=== PATIENT | female | born 1965 | race Caucasian/White ===

== ENCOUNTER 2016-04-07 11:54 | Outpatient (CLI) | payer MEDICARE ==
[~2016-04-07] VITALS: Ht 154.9 cm; Wt 60.9 kg
[~2016-04-07 11:54] MED LIST: ALEVE220 MG PO; CATAPRES0.1 MG PO; CELEXA10 MG PO; HYDROCODON-ACE1 EAC6 PO; HYDROCODONE-APA1 TAB PO; LISINOPRIL-HCTZ1 T11 PO; MOBIC7.5 MG PO; NEURONTIN 300300 MG PO; NORVASC10 MG PO; NORVASC5 MG PO; PRILOSEC20 MG PO; PROAIR HFA8.5 GM INH; SPIRIVA18 MCG INH; SYMBICORT 16010.2 GM INH; TOPROL XL50 MG PO; ULTRAM50 MG PO; ZOFRAN4 MG PO
[2016-04-07 13:28] VITALS: BP 109/64; Ht 154.9 cm; Wt 60.9 kg
--- NOTE | 2016-04-07 14:18 | NUR ---
1315 PATIENT INFORMED THAT PER BLOOD BANK THAT HER COLD AGGLUTINS WERE ELEVATED AND SHE NEEDED TO STAY WARM DURING BLOOD TRANSFUSION AND WHEN SHE GOES HOME. NO NEED FOR BLOOD WARMER. GAVE PT WARM BLANKET AND RAISED ROOM TEMP.
--- NOTE | 2016-04-07 14:28 | NUR ---
1405 BLOOD INFUSING AND NO S/S OF ADVERSE EFFECTS FROM BLOOD. TEMP OKAY, ROOM WARM AND NO RESPIRATORY DISTRESS NOTED.IV IN LEFT ARM NO REDNESS OR SWELLING TO IV SITE.
--- NOTE | 2016-04-07 14:30 | NUR ---
1420 DOZING WITH EYES CLOSED AND NO S/S OF ADVERSE BLOOD REACTIONS NOTED.
--- NOTE | 2016-04-07 15:02 | NUR ---
1455 BLOOD INFUSING WITHOUT S/S OF BLOOD REACTIONS NOTED. NO NEEDS VOICED V/S STABLE. IV TO LEFT ARM NO REDNESS OR SWELLING.
--- NOTE | 2016-04-07 15:25 | NUR ---
8116 SHELLY MITCHELL R.N. CALLED [facility] OFFICE ONLY GETTING 1 UNIT OF BLOOD NOT 2 AND NO NEED FOR LASIX ONLY GETTING 1 UNIT.
--- NOTE | 2016-04-07 15:26 | NUR ---
1520 V/S STABLE DOZING AND BLOOD INFUSING WITHOUT S/S OF BLOOD REACTIONS NOTED. IV SITE LEFT ARM NO REDNESS OR SWELLING.
--- NOTE | 2016-04-07 16:10 | NUR ---
1550 BLOOD COMPLETED AND FLUSHING WITH NORMAL SALINE.IV LEFT ARM NO REDNESS OR SWELLING.
--- NOTE | 2016-04-07 18:15 | NUR ---
1750 V/S TAKEN NO S/S OF BLOOD REACTIONS. IV DCD CATHETER INTACT. DISCHARGE INSTRUCTIONS GIVEN AND REVIEWED BLOOD TRANSFUSION REACTION SHEET. VERBALLY UNDERSTANDS.
--- NOTE | 2016-04-07 18:18 | NUR ---
1800 TO HOME WALKED TO FRONT AMBULATED.
== END 2016-04-07 18:00 | disposition home or self-care (01) ==
LOC: D.OPS 11:54 → D.MAMMO 13:15 → D.OPS 13:15
DX: Z12.31 Encounter for screening mammogram for malignant neoplasm of breast (principal); D64.81 Anemia due to antineoplastic chemotherapy

== ENCOUNTER 2016-08-01 10:06 | Inpatient (IN) | payer MEDICARE ==
[~2016-08-01] VITALS: Ht 154.9 cm; Wt 56.6 kg
[2016-08-01 13:51] VITALS: BP 113/68; BMI 24.6
[2016-08-01] MEDS ORDERED: CATAPRES0.1 MG PO (14:15)
[2016-08-01] MEDS ORDERED: NORCO 7.5/325 T1 TA1 PO (14:16)
[2016-08-01] MEDS ORDERED: NORVASC5 MG PO (14:17)
--- NOTE | 2016-08-01 14:37 | NUR ---
BILATERAL SCD'S ARE PLACED ON PATIENT AND TURNED ON. NON SKID SOCKS PLACED ON PATIENT. WHEN ASKED ABOUT A SMOKING PATCH (SMOKES ECIGS AND CIGS) SHE REFUSED ONE, STATES THAT SHE WILL NOT BE HERE LONG.
[2016-08-01 16:00] VITALS: BP 113/71
[2016-08-01 19:00] VITALS: BP 116/79
--- NOTE | 2016-08-01 19:30 | NUR ---
AWAKE/ALERT ORIENTED X 4. WATCHING TV. DENIES PAIN OR ANY DISCOMFORTS. IV IN FA WITH NS INFUSING AT 75ML/HR. LEFT CHEST INFUSION PORT NOTED. ORIENTED TO CALL LIGHT FOR ANY NEEDS.
--- NOTE | 2016-08-01 21:20 | NUR ---
ADMIN NORCO 7.5MG PO PER REQUEST FOR C/O PAIN "ALL OVER", RATED AT 7 ON NUMBER SCALE. REFUSED SCHED CELEXA, STATING SHE HAD TAKEN IT THIS MORNING. NO OTHER NEEDS VOICED.
[2016-08-02] VITALS: BP 105/65
--- NOTE | 2016-08-02 01:45 | NUR ---
RESTING QUIETLY ON LEFT SIDE WITH EYES CLOSED. RR 18 EVEN U/L. NO SIGNS OR SYMPTOMS OF PAIN OR DISCOMFORT. CALL LIGHT IN REACH.
[2016-08-02 05:38] VITALS: BP 123/72
[2016-08-02 05:43] LABS: HEMATOCRIT 25.1 % (36.0-48.0); HEMOGLOBIN 8.7 g/dL (12-16); MCH 33.7 pg (26.0-34.0); MCHC 34.7 g/dL (31.0-37.0); MCV 97.3 fL (80.0-100.0); MEAN PLATELET VOLUME 8.9 fL (7.4-10.4); RBC 2.58 10x6/uL (4.00-5.40); RDW 14.2 % (11.5-14.5); WBC 5.8 10x3/uL (4.8-10.8)
[2016-08-02 05:54] LABS: PLATELET COUNT 189 10x3/uL (130-400)
[2016-08-02 06:50] LABS: ALBUMIN 3.2 g/dL (3.4-5.0); ALKALINE PHOSPHATASE 68 U/L (46-116); ALT (SGPT) 18 U/L (10-68); CALC OSMOLALITY 268 mosm/kg (275-300); CALCIUM 8.9 mg/dL (8.5-10.1); CARBON DIOXIDE 24.2 mmol/L (21.0-32.0); CHLORIDE - SERUM 101 mmol/L (98-107); CREATININE - SERUM 0.7 mg/dL (0.6-1.3); GLUCOSE 93 mg/dL (74-106); PROTEIN - SERUM 6.7 g/dL (6.4-8.2); SODIUM 135 mmol/L (136-145); UREA NITROGEN 10 mg/dL (7-18); eGFR NON AFRICAN AMERICAN > 90 mL/min (90-120)
[2016-08-02 07:07] LABS: LIPASE 4661 U/L (73-393)
[2016-08-02 07:08] LABS: AMYLASE - SERUM 1017 U/L (25-115)
[2016-08-02 07:31] LABS: LYMPHOCYTES 18 % (15-50); MONOCYTES 20 % (2-11); NEUTROPHILS 58 % (40-80); PLATELET ESTIMATE NORMAL
--- NOTE | 2016-08-02 07:38 | NUR ---
PLACED CALL TO DR PHILIPPE RE: CRITICAL LAB AMYLASE AND LIPASE.
--- NOTE | 2016-08-02 08:06 | NUR ---
DR PHILIPPE CALLED AND LEFT ORDERS TO CONSULT DR. TATE, DR SAUNDERS, US OF GALLBLADDER AND MAKE PATIENT NPO.
--- NOTE | 2016-08-02 09:06 | NUR ---
ADMINISTERED MORNING MEDICATIONS, PO MEDS HELD SINCE PT IS NPO. PT DENIES ANY OTHER NEEDS AT THIS TIME. CALL LIGHT IN REACH, NAD NOTED,WILL CONTINUE TO MONITOR.
[2016-08-02 10:08] VITALS: Ht 154.9 cm; Wt 56.6 kg
--- NOTE | 2016-08-02 10:45 | NUR ---
PT CALLED ME TO ROOM AND TO TELL DR. PHILIPPE THAT SHE WANTS TO GO HOME, AND THAT SHE IS GOING TO LEAVE NO MATTER WHAT. THAT SHE HAS SOME THING THAT NEED TO BE TAKEN CARE AT HOME. [address] PHILIPPE AND INFORMED HER THAT PT IS SAYING THAT SHE IS GOING TO LEAVE NO MATTER WHAT. TRANSFERED PHONE CALL TO PT'S ROOM. DR. PHILIPPE TALKING TO PT AT THIS TIME.
--- NOTE | 2016-08-02 11:16 | NUR ---
ELINA ZEE IN TO TALK TO PT. PT STILL STATING THAT SHE WANTS TO SIGN AMA PAPERS, BECAUSE SHE HAS TO GO HOME TO CHECK ON HER ANIMALS. ELINA ZEE ASKED HER TO STAY AND WAIT FOR THE DR'S CONSULTED TO SEE HER, BECUASE SHE IS VERY SICK.
--- NOTE | 2016-08-02 12:02 | NUR ---
PT DEMANDED THAT THE AMA FORM BE BROUGHT TO HER. STATED THAT SHE IS GOING HOME, THAT NO ONE CAN MAKE HER CHANGE HER MIND. ELINA ZEE STATED " I CAN'T STOP HER, I ALREADY TALKED TO HER AND THERE IS NOTHING ELSE I CAN DO". PT SIGNED AMA FORM WILL LET US KNOW WHEN SHE IS READY FOR WHEELCHAIR.
--- NOTE | 2016-08-02 12:25 | NUR ---
PT LEFT UNIT VIA WHEELCHAIR, AMA. NAD NOTED
== END 2016-08-02 12:33 | disposition left against medical advice (07) | DRG 439 ==
LOC: D.RAD 10:06 → D.RT 11:00 → D.M2 13:25
PROVIDERS: Emergency Medicine; ADMIT Internal Medicine Hematology & Oncology
DX: K85.90 Acute pancreatitis without necrosis or infection, unspecified (principal); F17.203 Nicotine dependence unspecified, with withdrawal; S22.32XA Fracture of one rib, left side, initial encounter for closed fracture; C34.90 Malignant neoplasm of unspecified part of unspecified bronchus or lung; I10 Essential (primary) hypertension; J44.9 Chronic obstructive pulmonary disease, unspecified; H70.90 Unspecified mastoiditis, unspecified ear; F41.9 Anxiety disorder, unspecified; X58.XXXA Exposure to other specified factors, initial encounter; E78.5 Hyperlipidemia, unspecified; G47.33 Obstructive sleep apnea (adult) (pediatric); G62.9 Polyneuropathy, unspecified; J30.9 Allergic rhinitis, unspecified; K21.9 Gastro-esophageal reflux disease without esophagitis; I73.9 Peripheral vascular disease, unspecified

== ENCOUNTER 2016-08-12 10:50 | Day surgery (SDC) | payer MEDICARE ==
[~2016-08-12] VITALS: Ht 154.9 cm; Wt 60.0 kg
[~2016-08-12 10:50] MED LIST changes: +NORCO 7.5/325 T1 TA1 PO
[2016-08-12 11:48] LABS: BASOPHILS 0.5 % (0-2); EOSINOPHILS 1.3 % (0-7); HEMATOCRIT 27.5 % (36.0-48.0); HEMOGLOBIN 9.5 g/dL (12-16); IMMATURE GRANULOCYTES 0.5 % (0-5); LYMPHOCYTES 17.4 % (15-50); MCH 33.8 pg (26.0-34.0); MCHC 34.5 g/dL (31.0-37.0); MCV 97.9 fL (80.0-100.0); MEAN PLATELET VOLUME 8.2 fL (7.4-10.4); MONOCYTES 19.5 % (2-11); NEUTROPHILS 60.8 % (40-80); RBC 2.81 10x6/uL (4.00-5.40)
[2016-08-12 11:49] LABS: PLATELET COUNT 311 10x3/uL (130-400)
[2016-08-12 12:01] LABS: APTT 32.3 SECONDS (22.8-39.4)
[2016-08-12 12:02] LABS: INR 0.99 (0.85-1.17)
[2016-08-12 12:08] LABS: ALBUMIN 3.7 g/dL (3.4-5.0); ALKALINE PHOSPHATASE 82 U/L (46-116); ALT (SGPT) 18 U/L (10-68); BILIRUBIN - TOTAL 0.24 mg/dL (0.2-1.3); CALC OSMOLALITY 260 mosm/kg (275-300); CALCIUM 9.2 mg/dL (8.5-10.1); CARBON DIOXIDE 25.7 mmol/L (21.0-32.0); CHLORIDE - SERUM 96 mmol/L (98-107); CREATININE - SERUM 0.8 mg/dL (0.6-1.3); GLUCOSE 97 mg/dL (74-106); POTASSIUM - SERUM 3.8 mmol/L (3.5-5.1); PROTEIN - SERUM 7.6 g/dL (6.4-8.2); SODIUM 131 mmol/L (136-145); UREA NITROGEN 7 mg/dL (7-18); eGFR NON AFRICAN AMERICAN 79 mL/min (90-120)
[2016-08-12 12:11] LABS: AMYLASE - SERUM 468 U/L (25-115); BILIRUBIN - DIRECT 0.04 mg/dL (0.00-0.30); LIPASE 2948 U/L (73-393)
[2016-08-12] MEDS ORDERED: IPRAT-ALBUT 0.5-3 ML UPD (13:06)
[2016-08-12 13:07] VITALS: BP 118/73; BMI 25.0
[2016-08-12 20:00] VITALS: BP 103/57
[2016-08-12 20:33] VITALS: BP 103/57; Ht 154.9 cm; Wt 60.0 kg
[2016-08-13] VITALS: BP 105/70
--- NOTE | 2016-08-13 02:00 | NUR ---
PATIENT STATES PAIN IS NOW A 7/10. MORPHINE AUTOMOTIVE ACCESSORY INSTALLER INITIATED PER ORDER.
[2016-08-13 04:00] VITALS: BP 109/65
[2016-08-13 05:51] LABS: BASOPHILS 0.5 % (0-2); EOSINOPHILS 0 % (0-7); HEMATOCRIT 23.2 % (36.0-48.0); HEMOGLOBIN 8.2 g/dL (12-16); IMMATURE GRANULOCYTES 0.5 % (0-5); LYMPHOCYTES 10.1 % (15-50); MCH 34.6 pg (26.0-34.0); MCHC 35.3 g/dL (31.0-37.0); MCV 97.9 fL (80.0-100.0); MEAN PLATELET VOLUME 8.5 fL (7.4-10.4); MONOCYTES 15.9 % (2-11); PLATELET COUNT 298 10x3/uL (130-400); RBC 2.37 10x6/uL (4.00-5.40); RDW 14.3 % (11.5-14.5); WBC 6.6 10x3/uL (4.8-10.8)
[2016-08-13 06:17] LABS: ALBUMIN 2.8 g/dL (3.4-5.0); ALKALINE PHOSPHATASE 61 U/L (46-116); ALT (SGPT) 95 U/L (10-68); AMYLASE - SERUM 257 U/L (25-115); BILIRUBIN - DIRECT 0.03 mg/dL (0.00-0.30); BILIRUBIN - INDIRECT 0.15 mg/dL (0.00-1.00); BILIRUBIN - TOTAL 0.18 mg/dL (0.2-1.3); CALC OSMOLALITY 266 mosm/kg (275-300); CALCIUM 8.7 mg/dL (8.5-10.1); CARBON DIOXIDE 24.2 mmol/L (21.0-32.0); CHLORIDE - SERUM 103 mmol/L (98-107); CREATININE - SERUM 0.7 mg/dL (0.6-1.3); GLUCOSE 120 mg/dL (74-106); LIPASE 1715 U/L (73-393); SODIUM 134 mmol/L (136-145); UREA NITROGEN 7 mg/dL (7-18); eGFR NON AFRICAN AMERICAN > 90 mL/min (90-120)
--- NOTE | 2016-08-13 07:17 | NUR ---
PATIENT SUPINE IN BED WATCHING TV. HOB 40 DEGREES. AAOX4. RR EVEN AND UNLABORED. O2 @ 2L VIA NC. 0 S/S OF DISTRESS. STATES PAIN IS A 2/10. IV TO LEFT FA PATENT WITH NO REDNESS OR SWELLING. LAP SITES X5 TO ABD WITH STERISTRIPS. SRX2. BED LOW. CALL LIGHT WITHIN REACH.
--- NOTE | 2016-08-13 07:35 | NUR ---
PT AOX4 RESP EVEN AND NONLABORED IV TO LEFT FOREARM PATENT AND INTACT PT DENIES NEEDS AT THIS TIME SRXR BED AT LOWEST SETTING CALL LIGHT WITHIN REACH WILL CONTINUE TO MONITOR
[2016-08-13 08:39] VITALS: BP 116/79
[2016-08-13] MEDS ORDERED: NORCO 7.5/325 T1 TA1 PO (08:58)
--- NOTE | 2016-08-13 09:44 | OP ---
PATIENT NAME: JUAN PABLO FLORES MEDICAL RECORD: [id number] :61 LOCATION:[id number] ADMISSION DATE: SURGEON: RYLIE TATE MD DATE OF OPERATION: 08/12/2016 SURGEON: Rylie Tate MD. PREOPERATIVE DIAGNOSIS: Gallstone pancreatitis. POSTOPERATIVE DIAGNOSIS: Gallstone pancreatitis. PROCEDURE PERFORMED: Laparoscopic cholecystectomy with intraoperative cholangiogram. ANESTHESIA: General. COMPLICATIONS: None. SPECIMENS: Gallbladder. ESTIMATED BLOOD LOSS: 40 cc. Case was clean contaminated. OPERATIVE COURSE: After consent was obtained, the patient was taken to the operating room and placed in the supine position on the operating table. Next, general anesthesia was given via endotracheal intubation after a timeout was performed to confirm the correct patient and procedure. The abdomen was prepped and draped in typical sterile fashion. Local anesthetic was injected just above the umbilicus. A stab incision was made with an 11-blade scalpel. Using a 5-mm bladeless optical trocar, the abdomen was entered under direct laparoscopic vision. Adequate pneumoperitoneum was achieved. The abdominal cavity was inspected. No evidence of bowel injury. No evidence of bleeding. The patient was then placed in steep reverse Trendelenburg position. All remaining trocars were placed after the administration of local anesthetic, two 5-mm trocars in the right upper quadrant and 11-mm trocar in the subxiphoid position. The fundus of the gallbladder was grasped and retracted cephalad. The infundibulum was grasped and retracted laterally. The peritoneum was incised using electrocautery. Blunt dissection was performed until the critical view was obtained. The cystic duct lateral, cystic artery medial, liver in the posterior window. A small incision was made at the infundibulum of the gallbladder with Metzenbaum scissors. At this time, a cholangiocatheter was passed through the opening. Intraoperative cholangiogram was performed, which showed abrupt filling of the duodenum. There were no obstructing lesions, no stones. There was minimal retrograde filling. There was no pancreatic retrograde filling. At this time, cholangiogram was terminated, catheter was removed. Three clips were placed in the proximal cystic duct and 1 clip distal. The duct was transected with laparoscopic Metzenbaum scissors. The remaining portion of the gallbladder was then dissected off the liver bed using electrocautery. Once complete, it was grasped with the tenaculum and removed through the 11-mm trocar and sent for permanent pathology. At this time, the operative field was copiously irrigated and suctioned. Careful attention was paid to the liver bed for hemostasis, which was obtained using electrocautery. Once hemostasis was obtained, the abdominal cavity was again irrigated and suctioned. The remaining portion abdominal cavity was inspected. No evidence of bowel injury and no evidence of OPERATIVE REPORT [id number] FREE,JUAN PABLO SHIRA bleeding. At this time, all remaining instruments were removed. The abdomen was desufflated. Trocars removed. Skin was closed with 4-0 Monocryl, Mastisol and Steri-Strips. At the end of the case, all needle and instrument counts were correct. No complications occurred. The patient was extubated and transferred to the PACU in stable condition. TRANSINT:[id number] Voice Confirmation ID: [id number] DOCUMENT ID: [id number] RYLIE TATE MD at 0944 CC: [id number] DICTATION DATE: 08/12/161704 HEALTH CARE SOCIAL WORKER: 08/13/16 0036 [place] [id number] [place] [id number]
--- NOTE | 2016-08-13 11:49 | NUR ---
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 NO DOCUMENTATION OF TYPE OF CLIP IS AVAILABLE. WILL TRY TO OBTAIN OP NOTES FROM [facility]. SPOKE TO DR. SULLIVAN AND HE SAID WAIT ON MRI UNTIL DOCUMENTATION AVAILABLE AND TO NOTIFY DR. TATE. [facility] NOTIFIED AND MRI WILL PEND UNTIL DOCUMENTATION CAN BE PROVIDED.
--- NOTE | 2016-08-13 19:32 | NUR ---
20G PIV TO LEFT FOREARM D/C WITH CATH INTACT.
--- NOTE | 2016-08-13 19:38 | NUR ---
HERMELINDA RN WENT OVER DISCHARGE INSTRUCTIONS VERBALLY AND WRITTENLY. ALL QUESTIONS ANSWERED AT BEDSIDE. PATIENT TAKEN DOWN FOR DISCHARGE VIA WHEELCHAIR WITH RN AND .
== END 2016-08-13 18:40 | disposition home or self-care (01) ==
LOC: D.OPS 10:50 → D.MS 10:50 → D.OPS 13:45 → D.MS 18:48 → D.OPS 08-13 18:40
PROVIDERS: Surgery
DX: K85.10 Biliary acute pancreatitis without necrosis or infection (principal)

== ENCOUNTER → 2016-08-26 08:11 | Outpatient (CLI) | payer MEDICARE ==
[2016-08-12 20:33] VITALS: BMI 25.0
[~2016-08-26 08:11] MED LIST changes: +IPRAT-ALBUT 0.5-3 ML UPD
[2016-08-26 09:01] LABS: ALBUMIN 3.3 g/dL (3.4-5.0); BILIRUBIN - DIRECT 0.06 mg/dL (0.00-0.30); BILIRUBIN - INDIRECT 0.27 mg/dL (0.00-1.00); BILIRUBIN - TOTAL 0.33 mg/dL (0.2-1.3); PROTEIN - SERUM 7.1 g/dL (6.4-8.2)
== END | disposition home or self-care (01) ==
LOC: D.LAB 08:11 → D.MRI 08:30
PROVIDERS: Internal Medicine Gastroenterology
DX: K76.9 Liver disease, unspecified (principal); R10.13 Epigastric pain; R74.8 Abnormal levels of other serum enzymes

== ENCOUNTER 2016-09-01 14:39 | Inpatient (IN) | payer MEDICARE ==
[~2016-09-01] VITALS: Ht 154.9 cm; Wt 56.7 kg
--- NOTE | 2016-09-01 16:40 | NUR ---
LEFT INFUSAPORT ACCESSED WITH 20GA X 1 IN NEEDLE. BLOOD RETURNED ON ASPIRATION. LUERLOCK X 2 APPLIED AND BIOPATCH WITH OCCLUSIVE DRESSING
[2016-09-01 16:51] LABS: BASOPHILS 0.3 % (0-2); EOSINOPHILS 8.6 % (0-7); HEMATOCRIT 31.5 % (36.0-48.0); HEMOGLOBIN 11.5 g/dL (12-16); IMMATURE GRANULOCYTES 0.5 % (0-5); LYMPHOCYTES 16.4 % (15-50); MCH 31.3 pg (26.0-34.0); MCHC 36.5 g/dL (31.0-37.0); MCV 85.6 fL (80.0-100.0); MONOCYTES 17.6 % (2-11); NEUTROPHILS 56.6 % (40-80); RBC 3.68 10x6/uL (4.00-5.40); RDW 15.3 % (11.5-14.5); WBC 6.6 10x3/uL (4.8-10.8)
[2016-09-01 16:52] LABS: PLATELET COUNT 154 10x3/uL (130-400)
[2016-09-01 17:19] LABS: ALBUMIN 3.4 g/dL (3.4-5.0); ALKALINE PHOSPHATASE 81 U/L (46-116); ALT (SGPT) 8 U/L (10-68); AMYLASE - SERUM 160 U/L (25-115); CALCIUM 8.4 mg/dL (8.5-10.1); CARBON DIOXIDE 27.5 mmol/L (21.0-32.0); CREATININE - SERUM 0.4 mg/dL (0.6-1.3); GLUCOSE 76 mg/dL (74-106); LIPASE 839 U/L (73-393); PROTEIN - SERUM 6.3 g/dL (6.4-8.2); UREA NITROGEN 5 mg/dL (7-18); eGFR NON AFRICAN AMERICAN > 90 mL/min (90-120)
[2016-09-01 17:20] LABS: CALC OSMOLALITY 232 mosm/kg (275-300)
[2016-09-01 17:21] LABS: CHLORIDE - SERUM 80 mmol/L (98-107); POTASSIUM - SERUM 2.5 mmol/L (3.5-5.1); SODIUM 117 mmol/L (136-145)
--- NOTE | 2016-09-01 19:38 | NUR ---
MRI DOWN. NOTIFIED KIARA NEWELL PART IS IN ROUTE AND WILL DO IN AM
[2016-09-01 20:00] VITALS: BP 108/67
[2016-09-02] VITALS: BP 110/70
--- NOTE | 2016-09-02 01:20 | NUR ---
RESTING WITH EYES CLOSED, NO DISTRESS NOTED, SR'S UP, BED LOW, CL IN REACH
[2016-09-02 04:00] VITALS: BP 96/60
[2016-09-02 06:39] LABS: HEMATOCRIT 33.2 % (36.0-48.0); HEMOGLOBIN 11.9 g/dL (12-16); MCH 31.1 pg (26.0-34.0); MCHC 35.8 g/dL (31.0-37.0); MCV 86.7 fL (80.0-100.0); MEAN PLATELET VOLUME 9.1 fL (7.4-10.4); PLATELET COUNT 150 10x3/uL (130-400); RBC 3.83 10x6/uL (4.00-5.40); RDW 15.6 % (11.5-14.5); WBC 5.6 10x3/uL (4.8-10.8)
[2016-09-02 06:57] LABS: ALKALINE PHOSPHATASE 76 U/L (46-116); CALCIUM 8.6 mg/dL (8.5-10.1); CARBON DIOXIDE 24.7 mmol/L (21.0-32.0); CHLORIDE - SERUM 93 mmol/L (98-107); GLUCOSE 88 mg/dL (74-106); PROTEIN - SERUM 6.2 g/dL (6.4-8.2); SODIUM 128 mmol/L (136-145)
[2016-09-02 06:59] LABS: CALC OSMOLALITY 252 mosm/kg (275-300); CREATININE - SERUM 0.7 mg/dL (0.6-1.3); POTASSIUM - SERUM 3.7 mmol/L (3.5-5.1); UREA NITROGEN 3 mg/dL (7-18); eGFR NON AFRICAN AMERICAN > 90 mL/min (90-120)
[2016-09-02 07:00] LABS: ALT (SGPT) 25 U/L (10-68)
[2016-09-02 07:10] LABS: ANISOCYTOSIS OCC; BASOPHILS 2 % (0-2); EOSINOPHILS 7 % (0-7); LYMPHOCYTES 20 % (15-50); MONOCYTES 11 % (2-11); NEUTROPHILS 60 % (40-80); PLATELET ESTIMATE NORMAL
--- NOTE | 2016-09-02 07:25 | NUR ---
ASSESSMENT COMPLETE. L PORT PATENT. HELP DESK ASSISTANT SHOWING SR 94 PER TECH. COMPLAINING OF HEADACHE THAT WORSENS WITH COUGHING. REFUSING TO WEAR SCD'S. DENIES ANY NEEDS AT PRESENT.
[2016-09-02 08:16] VITALS: BP 113/74
[2016-09-02 08:28] LABS: AMYLASE - SERUM 177 U/L (25-115); LIPASE 861 U/L (73-393)
--- NOTE | 2016-09-02 09:54 | NUR ---
DILAUDID GIVEN SLOW IVP FOR COMPLAINT OF HEADACHE.
[2016-09-02 12:13] VITALS: Ht 154.9 cm; Wt 56.7 kg
--- NOTE | 2016-09-02 12:30 | NUR ---
AFTER WAKING UP FROM NAP, PATIENT STATES THAT SHE WANTS TO GO HOME TODAY REGARDLESS OF WHAT THE DOCTOR SAYS.
[2016-09-02 12:37] VITALS: BP 116/68
[2016-09-02 12:39] LABS: APPEARANCE CLEAR (CLEAR); BILIRUBIN NEGATIVE (NEGATIVE); COLOR STRAW (YELLOW); GLUCOSE NEGATIVE (NEGATIVE); KETONE SMALL mg/dL (NEGATIVE); LEUKOCYTE ESTERASE NEGATIVE (NEGATIVE); NITRITE NEGATIVE (NEGATIVE); PROTEIN NEGATIVE (NEGATIVE); UROBILINOGEN NORMAL (NORMAL)
--- NOTE | 2016-09-02 13:00 | NUR ---
AGREES TO STAY UNTIL MRI IS COMPLETED.
--- NOTE | 2016-09-02 14:20 | NUR ---
RESTING QUIETLY ON RIGHT SIDE WITH EYES CLOSED. RESP EVEN,NONLABORED.
--- NOTE | 2016-09-02 14:40 | NUR ---
UNSURE IF MRI WILL BE ABLE TO BE COMPLETED TODAY. PATIENT NOTIFIED. STATES THAT SHE IS LEAVING NO MATTER WHAT DOCTOR SAYS. HEUBER NEEDLE REMOVED FROM PORT AFTER FLUSHING WITH SALINE AND HEPARINI. MANAGER WELLNESS REMOVED AND SENT BACK TO MONITOR STATION. ANGIE REIS APN NOTIFIED OF PATIENT DECIDING TO LEAVE AMA.
--- NOTE | 2016-09-02 14:45 | NUR ---
LEFT AMA. ESCORTED TO VEHICLE VIA WC WITH BELONGINGS.
== END 2016-09-02 14:45 | disposition left against medical advice (07) | DRG 439 ==
LOC: D.MS 14:39
PROVIDERS: Internal Medicine Hematology & Oncology; Surgery; ADMIT Family Medicine
DX: K85.90 Acute pancreatitis without necrosis or infection, unspecified (principal); J96.10 Chronic respiratory failure, unspecified whether with hypoxia or hypercapnia; E87.1 Hypo-osmolality and hyponatremia; C78.7 Secondary malignant neoplasm of liver and intrahepatic bile duct; R11.2 Nausea with vomiting, unspecified; K86.1 Other chronic pancreatitis; I10 Essential (primary) hypertension; J44.9 Chronic obstructive pulmonary disease, unspecified; K21.9 Gastro-esophageal reflux disease without esophagitis; E87.6 Hypokalemia